=== PATIENT | male | born 1990 | race Two or more races ===

== ENCOUNTER 2022-09-29 11:55 | Emergency (ER) | payer OTHER ==
[~2022-09-29] VITALS: Ht 170.2 cm; Wt 89.8 kg
[2022-09-29 15:40] VITALS: BP 132/78
== END 2022-09-29 15:58 | disposition home or self-care (01) ==
LOC: ER 11:55
DX: M25.562 Pain in left knee (principal)
CPT/HCPCS: 73562

== ENCOUNTER 2023-02-12 17:27 | Emergency (ER) | payer SELFPAY ==
[~2023-02-12] VITALS: Ht 170.2 cm; Wt 93.4 kg
[2023-02-12] MEDS ORDERED: IBUP-1455 PO (21:14)
[2023-02-12] MEDS ORDERED: CYCL-839 PO (21:14)
[2023-02-12 22:06] VITALS: BP 131/82
== END 2023-02-12 22:06 | disposition home or self-care (01) ==
LOC: ER 17:27
DX: S33.5XXA Sprain of ligaments of lumbar spine, initial encounter (principal); M43.9 Deforming dorsopathy, unspecified; V89.2XXA Person injured in unspecified motor-vehicle accident, traffic, initial encounter; Y93.89 Activity, other specified; Y92.89 Other specified places as the place of occurrence of the external cause; Y99.8 Other external cause status
CPT/HCPCS: 72100